=== PATIENT | male | born 1985 | race Caucasian/White ===

== ENCOUNTER 2019-04-29 19:27 | Emergency (ER) | payer OTHER, SELFPAY ==
--- NOTE | ~2019-04-29 | XR_ITS ---
EXAMINATION: XR finger 1st LT min 2V INDICATION: Left first finger pain, initial encounter TECHNIQUE: Three views of the left first finger are obtained. COMPARISON: None available FINDINGS: There is an acute, traumatic, transverse fracture in the proximal aspect of the first dista l phalanx. Soft tissue swelling surrounds the fracture. Open fracture is not excluded. No additional acute osseous findings are evident. IMPRESSION: 1. Acute fracture in the proximal aspect of the first distal phalanx which could reflect an open frac ture. Reviewed, dictated and finalized at location A. [facility] RESIDENTIAL IMPRESSION: 1. Acute fracture in the proximal aspect of the first distal phalanx which coul d reflect an open fracture.
[2019-04-29 19:50] VITALS: BP 132/108; PULSE 76; RESP 18; TEMP 36.6; O2SAT 99
--- NOTE | 2019-04-29 20:05 | ED.GENADULT ---
HPI - General Adult General Chief complaint: Extremity Injury, Upper Stated complaint: injury left thumb pain Time Seen by Provider: 04/29/19 20:05 Source: patient and RN notes reviewed Mode of arrival: ambulatory Limitations: no limitations History of Present Illness HPI narrative: This patient was digging a hole with a shovel today and he forcefully shoved the shovel into the ground and his thumb was caught between the shovel and a wooden stake that he had put in the ground for a spacer. It caused immediate early bruising and mild swelling at the distal aspect of the left thumb with an abrasion over the distal radial aspect of the left thumb. It has a throbbing pain. He is been able to flex and bend the thumb. He has had normal opposition. Is painful if he flexes and bends the thumb nail. He did not receive any bruising of the nailbed or damage to the nail. He does not hurt in any other body area including the rest of the hand including the index, middle, ring, and little fingers. He does not hurt through the metacarpals 1 through 5. There is no pain at the wrist, through the forearm, or at the elbow, or through the shoulder. The patient has no numbness or tingling sensation in the thumb. He otherwise has been feeling well without any ear pain, no nasal drainage, no sore throat, no fever, no cough. He has had no nausea, no vomiting, no diarrhea. He has had no hematuria, no dysuria, no pyuria. He has had no rashes. Patient is up-to-date on his tetanus immunizations having had 1 within the last 5 years. 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 Related Data Home Medications Medication Instructions Recorded Confirmed Unknown 04/29/19 propranolol 40 mg PO Q12H 04/29/19 04/29/19 Allergies Allergy/AdvReac Type Severity Reaction Status Date / Time No Known Allergies Allergy Verified 04/29/19 19:59 Review of Systems Review of Systems: Narrative: CONSTITUTIONAL: Denies fever, chills, or sweats. Noncontributory except as pertains to the past medical history and history of present illness. EYES: Denies visual changes, redness, or discharge. ENT: Denies rhinorrhea, congestion, sore throat, or otalgia. CARDIOVASCULAR: Denies chest pain, palpitations, or edema. RESPIRATORY: Denies cough or dyspnea. GASTROINTESTINAL: Denies abdominal pain, nausea, vomiting, or diarrhea. GENITOURINARY: Denies dysuria or hematuria. SKIN: Denies rash or itching. MUSCULOSKELETAL: Denies back pain, joint pain, or myalgia. NEUROLOGIC: Denies headache, numbness, or weakness. PSYCHIATRIC: Denies anxiety or depression. PMFSH Comments At time of signature, I have reviewed and agree with nursing past medical, surgical, social, and family history.Please see nursing chart for further information. There is no relevant family history pertinent to the presenting complaint. Exam Narrative: Exam Narrative: GENERAL: Well-appearing, well-nourished, and in no acute distress. HEAD: Normocephalic, atraumatic. EYES: PERRLA and EOMI. EARS: TM's clear bilaterally and the canals are clear. NOSE: Nares clear, no rhinorrhea or epistaxis. THROAT:Mucous membranes moist.Oropharynx Normal without erythema or exudates. NECK: Supple. No adenopathy of the neck, supraclavicular, axillary, or inguinal areas. RESPIRATORY: No respiratory distress. Airway patent. Respirations non-labored. Clear to auscultation. There are no wheezes, no rales, no retractions, no use accessory muscle respirations. Patient's not cyanotic and not dyspneic. Pulse ox on room air is 99% and his current temperature is 36.6. HEART: Regular rate and rhythm. No murmur heard. Normal peripheral pulses. ABDOMEN: Soft, nontender, nondistended, normal active bowel sounds.No masses. No rebound or guarding, No organomegaly. No CVA pain. No pain McBurney's point. He has a negative Fernandez sign and negative Rovsing sign. There are no pulsatile masses or audible bru
== END 2019-04-29 20:28 | disposition home or self-care (01) ==
PROVIDERS: Emergency Provider Family Medicine
DX: S62.525A Nondisplaced fracture of distal phalanx of left thumb, initial encounter for closed fracture (principal); X58.XXXA Exposure to other specified factors, initial encounter; S60.312A Abrasion of left thumb, initial encounter; I10 Essential (primary) hypertension
CPT/HCPCS: 29130; 73140; 99204; G0463